=== PATIENT | female | born 1975 | race American Indian/Alaskan Native ===

== ENCOUNTER 2016-10-13 09:39 | Emergency (ER) | payer MEDICAID ==
--- NOTE | 2016-10-13 13:17 | C.PDOC ---
History Of Present Illness 40-year-old female, is sent to the emergency department by Dr Terry with complaints of several month history of difficulty speaking, described as a stutter, that has been progressively worsening. patient notes associated confusion and memory loss. Patient was worked up outpatient, and had an MRI on 09/15/16 that showed: Nonenhancing multifocal cortical lesions in the right paramedian frontal cortex and left lateral posterior frontal cortex and subcortical white matter, subtle nonenhancing white matter abnormality in the right posterior centrum semiovale, lee radiata and periatrial white matter as well as solitary non enhancing lesion in the right thalamus. findings are strictly non specific, the differential considerations include multifocal infectious/inflammatory encephalitis, remote infarctions, vasculitis, SLE, metabolic disorders, less likely multifocal neoplasm. Patient sent to ED for further evaluation. No other complaints at this time Time Seen by Provider: 10/13/16 10:29 Chief Complaint (Nursing): Headache History Per: Patient History/Exam Limitations: no limitations Onset/Duration Of Symptoms: Days Current Symptoms Are (Timing): Still Present Severity: Moderate Past Medical History Reviewed: Historical Data, Nursing Documentation, Vital Signs Vital Signs: Last Vital Signs Temp 98.3 F 10/13/16 14:09 Pulse 88 10/13/16 14:09 Resp 18 10/13/16 14:09 BP 130/57 L 10/13/16 14:09 Pulse Ox 99 10/13/16 16:11 - Medical History PMH: Anemia Family History: States: No Known Family Hx - Social History Hx Alcohol Use: Yes Hx Substance Use: No - Immunization History Hx Tetanus Toxoid Vaccination: No Hx Influenza Vaccination: No Hx Pneumococcal Vaccination: (unk) Review Of Systems Constitutional: Negative for: Fever, Chills Cardiovascular: Negative for: Chest Pain Respiratory: Negative for: Shortness of Breath Gastrointestinal: Negative for: Nausea, Vomiting Neurological: Positive for: Weakness, Other (difficulty speaking) Physical Exam - Physical Exam Appears: Non-toxic, No Acute Distress Skin: Warm, Dry, No Rash Head: Atraumatic, Normacephalic Eye(s): bilateral: Normal Inspection, PERRL Nose: Normal Oral Mucosa: Moist Lips: Normal Appearing Neck: Normal ROM Cardiovascular: Rhythm Regular, No Murmur Respiratory: Normal Breath Sounds, No Accessory Muscle Use Extremity: Normal ROM Neurological/Psych: Oriented x3, Normal Speech, Other (No focal deficit. Speech is choppy) ED Course And Treatment O2 Sat by Pulse Oximetry: 99 Medical Decision Making Medical Decision Making: PROCEDURE: LUMBAR PUNCTURE Performed by the emergency provider Consent: Informed consent, after discussion of the risks, benefits, and alternatives to the procedure, was obtained Timeout: A timeout to verify the correct patient, procedure, and site was performed immediately prior to the procedure. Indication: Patient's position: . Anesthesia: Local anesthesia: . Preparation: Patient was prepped and draped in the usual sterile fashion and sterile technique was used. The landmarks were identified. Needle size: A gauge spinal needle. Lumbar entry space: level. Fluid appearance: . Post-procedure: Site cleansed and adhesive bandage applied. The patient tolerated the procedure well with no immediate complications. CSF was sent to lab for analysis. Case discussed w/ Dr Herrera, states he will see patient in office tomorrow. Disposition - Disposition Referrals: Navarro Herrera MD [Staff Provider] - Disposition: HOME/ ROUTINE Disposition Time: 14:20 Condition: FAIR Additional Instructions: Follow up with Dr. Herrera. Forms: General Discharge Instructions - POA Present On Arrival: None - Clinical Impression Clinical Impression: Abnormal MRI of head - Scribe Statement The provider has reviewed the documentation as recorded by the Scribe (Devyn Ibrahim) All medical record entries made by the Scribe were at my direction and personally dictated by me. I have reviewed the chart and agree that the record accurately reflects my personal performance of the history, physical exam, medical decision making, and the department course for this patient. I have also personally directed, reviewed, and agree with the discharge instructions and disposition.
[2016-10-13 13:54] LABS: FLUID TYPE SPINAL FLUID
[2016-10-13 14:09] VITALS: BP 130/57; PULSE 88; RESP 18; TEMP 98.3
[2016-10-13 14:23] VITALS: O2SAT 99
[2016-10-13 14:32] LABS: CSF APPEARANCE CLEAR/COLORLESS (CLEAR); CSF VOLUME 2 mL (0-1)
[2016-10-15 22:06] LABS: IGG INDEX CSF 0.42 (<0.66); SYNTHESIS RATE IGG CSF -7.2 mg/24 h (-9.9-3.3)
[2016-10-16 22:17] LABS: SOURCE CSF
== END 2016-10-13 15:07 | disposition home or self-care (01) ==
LOC: C.ER 09:39
DX: R41.0 Disorientation, unspecified (principal); R41.3 Other amnesia; R93.0 Abnormal findings on diagnostic imaging of skull and head, not elsewhere classified